=== PATIENT | female | born 1975 | race Caucasian/White ===

== ENCOUNTER → 2017-01-29 | Outpatient (CLI) | payer OTHER ==
[2015-05-26 00:16] VITALS: BP 88/51
[~2017-01-29] MED LIST: ACET325T21 PO; ACET325T9 PO; AMIT150T PO; AMIT50TA PO; CHOL4POW11 PO; CYCL10TA2 PO; DICY10CA53 PO; DIPH25CA58 PO; DRAMAMINE PO; DULO60CA6 PO; GABA-586 PO; HYDR-971 PO; HYDR25SU18 RC; NAPR550T3 PO; NAPROXEN PO; OMEP20TA63 PO; OXYC-323 PO; PROP5POW MC; PROP80CA3 PO; RIZA5TAB PO; TRAM50TA PO
--- NOTE | 2017-01-29 11:42 | KCIC ---
EXAM: Right foot, 2 views. HISTORY: Heel pain. COMPARISON: None. FINDINGS: Frontal and lateral views of the right foot are obtained. There is no fracture, dislocation or subluxation. IMPRESSION: No acute osseous finding. Electronically signed by: Kiley Smith MD (01/29/2017 11:39 AM)
== END | disposition home or self-care (01) ==
LOC: KCIC 10:53
PROVIDERS: ATTEND Nurse Practitioner Family
DX: M79.671 Pain in right foot (principal)
CPT/HCPCS: 73620

== ENCOUNTER → 2017-06-24 | Outpatient (CLI) | payer OTHER ==
[2015-05-26 00:16] VITALS: BP 88/51
[~2017-06-24] MED LIST changes: +CONTRAST GIVEN MC PRN; +IOHEXOL 300 MG/ML 75 ML VIAL IV ONE; +NAPR-677 PO; -NAPR550T3 PO
--- NOTE | 2017-06-24 17:43 | RAD ---
CTA of the abdomen with contrast, 06/24/2017: History: Abdominal pain, possible ischemia Multidetector CT imaging was performed following an IV bolus injection of iodinated contrast material. Multiplanar reconstructions were produced including MIP images as well as 3-D volume rendered reconstructions of the major arteries. No significant atherosclerotic plaquing is identified. The abdominal aorta is of normal caliber. The superior mesenteric, celiac and renal artery origins are all widely patent. A patent inferior mesenteric artery is present. The aortic bifurcation and common iliac arteries are unremarkable. Incidental CT findings include changes of a previous cholecystectomy. There is minimal bilateral renal cortical scarring. IMPRESSION: No significant abnormality is detected. PQRS Compliance Statement: One or more of the following individualized dose reduction techniques were utilized for this examination: 1. Automated exposure control 2. Adjustment of the mA and/or kV according to patient size 3. Use of iterative reconstruction technique
== END | disposition home or self-care (01) ==
LOC: CT 08:58
PROVIDERS: ATTEND Internal Medicine Gastroenterology
DX: R10.9 Unspecified abdominal pain (principal); R19.7 Diarrhea, unspecified; Z90.49 Acquired absence of other specified parts of digestive tract; Z87.891 Personal history of nicotine dependence
CPT/HCPCS: 74175

== ENCOUNTER → 2017-11-12 | Outpatient (CLI) | payer OTHER | END | disposition home or self-care (01) | LOC: KCIC MRI 10:32 | DX: G43.919 Migraine, unspecified, intractable, without status migrainosus (principal); R42 Dizziness and giddiness | CPT/HCPCS: 70551 ==

== ENCOUNTER → 2018-02-10 | Outpatient (CLI) | payer OTHER | END | disposition home or self-care (01) | LOC: MAMMO 12:44 | DX: R92.8 Other abnormal and inconclusive findings on diagnostic imaging of breast (principal) | CPT/HCPCS: 76641; 77066; G0279 ==

== ENCOUNTER → 2018-09-11 | Outpatient (CLI) | payer OTHER ==
[2015-05-26 00:16] VITALS: BP 88/51
[~2018-09-11] MED LIST changes: -CONTRAST GIVEN MC PRN; -GABA-586 PO; +GABA300C18 PO; +HYDR-3164 PO; -HYDR-971 PO; -IOHEXOL 300 MG/ML 75 ML VIAL IV ONE; -OXYC-323 PO; +OXYC1TAB15 PO
--- NOTE | 2018-09-11 14:17 | RAD ---
Right breast ultrasound, 09/11/2018: History: Follow-up breast nodule A targeted ultrasound exam of the right breast was performed at 8:00 location where a nodule was identified on the 02/10/2018 study. Again noted is a smooth oval-shaped hypoechoic nodule with posterior acoustic enhancement. It currently measures 5 x 3 x 4 mm compared to measurements of 6 x 3 x 4 mm on the previous study. No definite internal color flow is seen. Allowing for technical differences it appears to be unchanged in size. This is probably a small fibroadenoma or complicated cyst. Incidental note is made of a 6 mm cyst at the 11:00 location approximately 2.5 cm in the nipple. A 3.5 mm hypoechoic nodule is also noted on today's study at the 10:00 location approximately 7 cm in the nipple. There are low level internal echoes. This lies in an area of reported pain. This is probably a complicated cyst. IMPRESSION: Probably benign right breast nodules as described above. Further sonographic surveillance in 6 months is suggested. BI-RADS 3-probably benign findings
== END | disposition home or self-care (01) ==
LOC: US 13:21
PROVIDERS: ATTEND Obstetrics & Gynecology
DX: R92.8 Other abnormal and inconclusive findings on diagnostic imaging of breast (principal)
CPT/HCPCS: 76641

== ENCOUNTER 2019-02-25 12:38 | Emergency (ER) | payer OTHER ==
[~2019-02-25] VITALS: Ht 175.3 cm; Wt 59.4 kg
--- NOTE | 2019-02-25 13:28 | PHYS DOC ---
Past Medical History Past Medical History: Fibromyalgia, Migraines, Other Additional Past Medical Histor: CHRONIC BACK PAIN, CHRONIC STOMACH ISSUES,ABD PAIN Past Surgical History: Appendectomy, Cholecystectomy, Hysterectomy, Other Additional Past Surgical Histo: KNEE, CARPAL TUNNEL Alcohol Use: None Drug Use: None Adult General Chief Complaint Chief Complaint: ABDOMINAL PAIN HPI HPI Patient is a 43 year old female presents with abdominal pain that started on Saturday. The patient describes abdominal pain as a vibrating her stomach that then turns into sharp and crampy. The patient rates her pain as 8 out of 10. The patient denies any fevers denies nausea denies vomiting. Has a history of irritable bowel syndrome. Review of Systems Review of Systems Constitutional: Denies fever or chills [] Eyes: Denies change in visual acuity, redness, or eye pain [] HENT: Denies nasal congestion or sore throat [] Respiratory: Denies cough or shortness of breath [] Cardiovascular: No additional information not addressed in HPI [] GI: Reports abdominal pain Denies nausea, vomiting, bloody stools or diarrhea [] : Denies dysuria or hematuria [] Musculoskeletal: Denies back pain or joint pain [] Integument: Denies rash or skin lesions [] Neurologic: Denies headache, focal weakness or sensory changes [] Endocrine: Denies polyuria or polydipsia [] Complete systems were reviewed and found to be within normal limits, except as documented in this note. Current Medications Current Medications Current Medications Medications (Trade) Dose Ordered Sig/Serina Start Time Stop Time Status Last Admin Dose Admin Ceftriaxone Sodium (Rocephin) 1 gm 1X ONCE 02/25/19 15:00 02/25/19 15:01 DC Info (CONTRAST GIVEN -- Rx MONITORING) 1 each PRN DAILY PRN 02/25/19 13:45 02/27/19 13:44 Iohexol (Omnipaque 300 Mg/ml) 75 ml 1X ONCE 02/25/19 13:45 02/25/19 13:46 DC 02/25/19 13:45 75 ML Morphine Sulfate (Morphine Sulfate) 4 mg 1X ONCE 02/25/19 13:30 02/25/19 13:31 DC 02/25/19 14:08 4 MG Ondansetron HCl (Zofran) 4 mg 1X ONCE 02/25/19 13:30 02/25/19 13:31 DC 02/25/19 14:06 4 MG Sodium Chloride 1,000 ml @ 1,000 mls/hr 1X ONCE 02/25/19 13:30 02/25/19 14:43 DC 02/25/19 14:02 1,000 MLS/HR Allergies Allergies Allergies Coded Allergies Type Severity Reaction Last Updated Verified metoclopramide Allergy Severe 05/25/15 Yes codeine Adverse Reaction Intermediate Nausea and Vomiting 01/14/15 No Physical Exam Physical Exam Constitutional: Well developed, well nourished, no acute distress, non-toxic appearance. [] HENT: Normocephalic, atraumatic, bilateral external ears normal, oropharynx moist, no oral exudates, nose normal. [] Eyes: PERRLA, EOMI, conjunctiva normal, no discharge. [] Neck: Normal range of motion, no tenderness, supple, no stridor. [] Cardiovascular:Heart rate regular rhythm, no murmur [] Lungs & Thorax: Bilateral breath sounds clear to auscultation [] Abdomen: Bowel sounds normal, soft, tenderness to the left lower quadrant, per iumbilical, epigastric, and left upper quadrant, no masses, no pulsatile masses. [] Skin: Warm, dry, no erythema, no rash. [] Back: No tenderness, no CVA tenderness. [] Extremities: No tenderness, no cyanosis, no clubbing, ROM intact, no edema. [] Neurologic: Alert and oriented X 3, normal motor function, normal sensory function, no focal deficits noted. [] Psychologic: Affect normal, judgement normal, mood normal. [] Current Patient Data Vital Signs Vital Signs Date Time Temp Pulse Resp B/P (MAP) Pulse Ox O2 Delivery O2 Flow Rate FiO2 02/25/19 14:08 20 100 02/25/19 12:51 97.6 78 110/70 (83) Room Air 97.6 Lab Values Laboratory Tests Test 02/25/19 12:50 02/25/19 13:56 Urine Collection Type Unknown Urine Color Yellow Urine Clarity Clear Urine pH 5.0 Urine Specific [place] 1.015 Urine Protein Negative mg/dL (NEG-TRACE) Urine Glucose (UA) Negative mg/dL (NEG) Urine Ketones (Stick) Negative mg/dL (NEG) Urine Blood Moderate (NEG) Urine Nitrite Negative (NEG) Urine Bilirubin Negative (NEG) Urine Urobilinogen Dipstick 0.2 mg/dL (0.2 mg/dL) Urine Leukocyte Esterase Trace (NEG) Urine RBC Occ /HPF (0-2) Urine WBC 1-4 /HPF (0-4) Urine Squamous Epithelial Cells Occ /LPF Urine Bacteria Few /HPF (0-FEW) White Blood Count 6.1 x10^3/uL (4.0-11.0) Red Blood Count 4.12 x10^6/uL (3.50-5.40) Hemoglobin 13.0 g/dL (12.0-15.5) Hematocrit 38.6 % (36.0-47.0) Mean Corpuscular Volume 94 fL (79-100) Mean Corpuscular Hemoglobin 32 pg (25-35) Mean Corpuscular Hemoglobin Concent 34 g/dL (31-37) Red Cell Distribution Width 13.1 % (11.5-14.5) Platelet Count 250 x10^3/uL (140-400) Neutrophils (%) (Auto) 62 % (31-73) Lymphocytes (%) (Auto) 28 % (24-48) Monocytes (%) (Auto) 8 % (0-9) Eosinophils (%) (Auto) 1 % (0-3) Basophils (%) (Auto) 1 % (0-3) Neutrophils # (Auto) 3.8 x10^3uL (1.8-7.7) Lymphocytes # (Auto) 1.7 x10^3/uL (1.0-4.8) Monocytes # (Auto) 0.5 x10^3/uL (0.0-1.1) Eosinophils # (Auto) 0.0 x10^3/uL (0.0-0.7) Basophils # (Auto) 0.0 x10^3/uL (0.0-0.2) Sodium Level 140 mmol/L (136-145) Potassium Level 3.8 mmol/L (3.5-5.1) Chloride Level 104 mmol/L (98-107) Carbon Dioxide Level 28 mmol/L (21-32) Anion Gap 8 (6-14) Blood Urea Nitrogen 9 mg/dL (7-20) Creatinine 0.8 mg/dL (0.6-1.0) Estimated GFR (Cockcroft-Gault) 78.3 BUN/Creatinine Ratio 11 (6-20) Glucose Level 80 mg/dL (70-99) Calcium Level 9.1 mg/dL (8.5-10.1) Total Bilirubin 0.3 mg/dL (0.2-1.0) Aspartate Amino Transferase (AST) 17 U/L (15-37) Alanine Aminotransferase (ALT) 21 U/L (14-59) Alkaline Phosphatase 60 U/L (46-116) Total Protein 8.0 g/dL (6.4-8.2) Albumin 3.7 g/dL (3.4-5.0) Albumin/Globulin Ratio 0.9 (1.0-1.7) L Lipase 141 U/L (73-393) Laboratory Tests 02/25/19 13:56 Laboratory Tests 02/25/19 13:56 EKG EKG [] Radiology/Procedures Radiology/Procedures [][facility] [address] [place] [address] IMAGING REPORT Signed PATIENT: ALEX GARCIA ACCOUNT: [id number] : 1975 LOCATION: ER AGE: 43 SEX: F EXAM STATUS: REG ER ORD. PHYSICIAN: TEDDY DOMINGUEZ APRN REASON: abd pain PROCEDURE: CT ABD PELV W/ IV CONTRST ONLY Examination: CT of the abdomen pelvis with IV contrast HISTORY: History of abdominal pain COMPARISON: None available Technique: Multiplanar, multisequence MR imaging of the abdomen were performed to contrast. FINDINGS: The bibasilar lungs are clear. No evidence of free air identified in the abdomen. The visualized liver grossly appears unremarkable. Cholecystectomy changes identified. The visualized spleen, adrenals grossly appears unremarkable. The stomach is mildly distended. The visualized pancreas grossly appears unremarkable. Few fluid distended small bowel loops identified in the abdomen. There is mild thickened appearance of the wall of the distal descending colon and sigmoid colon with mild surrounding fat stranding. Urinary bladder is mildly distended. The bilateral kidneys enhance symmetrically. The caliber of the aorta grossly appears unremarkable. The appendix is not identified. No evidence of lytic bony destructive lesion. IMPRESSION: 1. Mild thickened appearance of the wall of the distal descending colon and the sigmoid colon with minimal surrounding positioning likely mild colitis. 2. Cholecystectomy changes. 3. Few fluid distended small bowel loops identified in the lower mid abdomen, nonspecific could be mild enteritis. Electronically signed by: Huber Hickman MD (02/25/2019 3:41 PM) [facility]-KCIC2 Course & Med Decision Making Course & Med Decision Making Pertinent Labs and Imaging studies reviewed. (See chart for details) Will get labs, CT, ua, and supportive care. Has a UTI. Will d/c home, other labs are unremarkable. Dragon Disclaimer Dragon Disclaimer This electronic medical record was generated, in whole or in part, using a voice recognition dictation system. Departure Departure Impression: Primary Impression: UTI (urinary tract infection) Disposition: HOME, SELF-CARE Condition: STABLE Referrals: CARLOS NGUYEN APRN (PCP) Patient Instructions: Urinary Tract Infection Additional Instructions: Thank you for visiting [facility]. We appreciate you trusting us with your care. If any additional problems come up don't hesitate to return to visit us. Please follow up with your primary care provider so they can plan additional care if needed and know about the problem that you had. If symptoms worsen come back to the Emergency Department. Any concerning symptoms that start such as chest pain, shortness of Air, weakness or numbness on one side of the body, running high fevers or any other concerning symptoms return to the ER. You have been prescribed an antibiotic today to help fight your infection. Please take all of the antibiotic as directed. If after 48 hours the infection is not improving, please return for more care. If the infection worsens, return to ER for additional care. Please fill your medications at any pharmacy and follow the prescription instructions. Scripts Cephalexin (KEFLEX) 500 Mg Capsule 1 CAP PO BID for 7 Days, #14 CAP Prov: TEDDY DOMINGUEZ APRN 02/25/19 Problem Qualifiers Primary Impression: UTI (urinary tract infection) Urinary tract infection type: acute cystitis Hematuria presence: without hematuria Qualified Codes: N30.00 - Acute cystitis without hematuria TEDDY DOMINGUEZ APRN Feb 25, 2019 13:28
[2019-02-25] MEDS ORDERED: IV NORMAL SALINE 1000ML BAG 1,000 ML IV ONE (13:30)
[2019-02-25] MEDS ORDERED: MORPHINE SULFATE 4 MG/ML VIAL. IV ONE (13:30)
[2019-02-25] MEDS ORDERED: ONDANSETRON PF 4 MG/2 ML VIAL. IV ONE (13:30)
[2019-02-25] MEDS ORDERED: CONTRAST GIVEN. MC PRN (13:45)
[2019-02-25] MEDS ORDERED: IOHEXOL 300 MG/ML 100ML VIAL. IV ONE (13:45)
[2019-02-25 13:53] LABS: BILIRUBIN,URINE NEGATIVE (NEG); CLARITY,URINE CLEAR; COLOR,URINE YELLOW; NITRITE,URINE NEGATIVE (NEG); PROTEIN,URINE NEGATIVE (NEG-TRACE); UROBILINOGEN,URINE 0.2 mg/dL (0.2 mg/dL)
[2019-02-25 14:09] LABS: BACTERIA,URINE FEW /HPF (0-FEW); RBC,URINE OCC /HPF (0-2); SQUAMOUS EPITHELIAL CELL,UR OCC /LPF
[2019-02-25 14:18] LABS: BASO % 1 % (0-3); EOS % 1 % (0-3); HEMATOCRIT 38.6 % (36.0-47.0); LYMPH # 1.7 x10^3/uL (1.0-4.8); LYMPH % 28 % (24-48); MEAN CORPUSCULAR HEMOGLOBIN 32 pg (25-35); MEAN CORPUSCULAR HGB CONC 34 g/dL (31-37); MEAN CORPUSCULAR VOLUME 94 fL (79-100); MONO # 0.5 x10^3/uL (0.0-1.1); MONO % 8 % (0-9); NEUT # 3.8 x10^3uL (1.8-7.7); NEUT % 62 % (31-73); PLATELET COUNT 250 x10^3/uL (140-400); RED BLOOD COUNT 4.12 x10^6/uL (3.50-5.40); RED CELL DISTRIBUTION WIDTH 13.1 % (11.5-14.5); WHITE BLOOD COUNT 6.1 x10^3/uL (4.0-11.0)
[2019-02-25 14:34] LABS: CALCIUM 9.1 mg/dL (8.5-10.1); CREATININE 0.8 mg/dL (0.6-1.0); GFR 78.3; POTASSIUM 3.8 mmol/L (3.5-5.1)
[2019-02-25 14:47] LABS: ALBUMIN 3.7 g/dL (3.4-5.0); ALBUMIN/GLOBULIN RATIO 0.9 (1.0-1.7); TOTAL BILIRUBIN 0.3 mg/dL (0.2-1.0)
[2019-02-25] MEDS ORDERED: cefTRIAXone IV Push 1 GM VIAL. IVP ONE (15:00)
--- NOTE | 2019-02-25 15:43 | RAD ---
Examination: CT of the abdomen pelvis with IV contrast HISTORY: History of abdominal pain COMPARISON: None available Technique: Multiplanar, multisequence MR imaging of the abdomen were performed to contrast. FINDINGS: The bibasilar lungs are clear. No evidence of free air identified in the abdomen. The visualized liver grossly appears unremarkable. Cholecystectomy changes identified. The visualized spleen, adrenals grossly appears unremarkable. The stomach is mildly distended. The visualized pancreas grossly appears unremarkable. Few fluid distended small bowel loops identified in the abdomen. There is mild thickened appearance of the wall of the distal descending colon and sigmoid colon with mild surrounding fat stranding. Urinary bladder is mildly distended. The bilateral kidneys enhance symmetrically. The caliber of the aorta grossly appears unremarkable. The appendix is not identified. No evidence of lytic bony destructive lesion. IMPRESSION: 1. Mild thickened appearance of the wall of the distal descending colon and the sigmoid colon with minimal surrounding positioning likely mild colitis. 2. Cholecystectomy changes. 3. Few fluid distended small bowel loops identified in the lower mid abdomen, nonspecific could be mild enteritis. Electronically signed by: Huber Hickman MD (02/25/2019 3:41 PM) [facility]2
[2019-02-25] MEDS ORDERED: CEPH-264 PO (16:03)
[2019-02-25 17:45] VITALS: BP 116/57
== END 2019-02-25 16:30 | disposition home or self-care (01) ==
LOC: ER 12:38
DX: N39.0 Urinary tract infection, site not specified (principal); G89.29 Other chronic pain; G43.909 Migraine, unspecified, not intractable, without status migrainosus; Z90.89 Acquired absence of other organs; Z90.49 Acquired absence of other specified parts of digestive tract; Z90.710 Acquired absence of both cervix and uterus; Z88.5 Allergy status to narcotic agent; Z88.8 Allergy status to other drugs, medicaments and biological substances
CPT/HCPCS: 36415; 74177; 80053; 81001; 83690; 85025; 87086; 96374; 96375; 99285; J0696; J2270; J2405; J7030; Q9967

== ENCOUNTER → 2019-08-25 | Outpatient (CLI) | payer OTHER ==
[~2019-08-25] MED LIST changes: +CEPH-264 PO
--- NOTE | 2019-08-25 14:55 | RAD ---
DATE: 08/25/2019. EXAM: MAMMO D[facility] CHANEL ASHAT, BREAST RIGHT. HISTORY: Palpable focus laterally and superiorly on the right. Six-month follow-up of nodules on prior sonography. Bilateral surveillance. COMPARISON: 02/10/2018. This study was interpreted with the benefit of Computerized Aided Detection (CAD). FINDINGS: Breast Density: DENSE The breast parenchyma is dense, which could reduce the sensitivity of mammography. Breast parenchyma level density D.. A skin marker is placed at the site of palpable concern on the right. There is no clear underlying mammographic abnormality. The parenchymal pattern is stable. Scattered calcifications are benign. There are no suspicious masses, microcalcifications or architectural distortion. Sonography was performed at the site of palpable concern superolaterally on the right and to follow the previous sonographic lesions. At the 8:00 position 4 cm from the nipple, a 5 x 4 mm hypoechoic oval nodule appears more smoothly marginated than previously and is likely a benign fibroadenoma. Another tiny complicated cyst or fibroadenoma at the 10:00 position 5 cm from the nipple also appears stable and benign. A cyst noted elsewhere previously has resolved. There is no suspicious correlate for the palpable focus. Only dense parenchyma is seen. BI-RADS CATEGORY: 3 PROBABLY BENIGN FINDING(S)-SHORT INTERVAL FOLLOW-UP SUGGESTED. RECOMMENDED FOLLOW-UP: 12M 12 MONTH FOLLOW-UP. 1. Sonography of the oval nodule at the right 8:00 position can be performed when the patient returns for her yearly examination to confirm 18 month stability and likely benignity. 2. Recommend ongoing follow-up of palpable findings. PQRS compliance statement: Patient information was entered into a reminder system with a target due date 08/25/2020 for the next mammogram. Mammography is a sensitive method for finding small breast cancers, but it does not detect them all and is not a substitute for careful clinical examination. A negative mammogram does not negate a clinically suspicious finding and should not result in delay in biopsying a clinically suspicious abnormality. "Our facility is accredited by the [employer] Mammography Program."
== END | disposition home or self-care (01) ==
LOC: MAMMO 09:47
PROVIDERS: ATTEND Obstetrics & Gynecology
DX: N63.13 Unspecified lump in the right breast, lower outer quadrant (principal); N64.89 Other specified disorders of breast
CPT/HCPCS: 76641; 77066; G0279; 77062

== ENCOUNTER → 2019-09-17 | Outpatient (CLI) | payer OTHER ==
[~2019-09-17] MED LIST changes: +DICY10CA3 PO; +ONDA4TAB12 PO
--- NOTE | 2019-09-17 13:40 | KCIC ---
EXAM: Abdomen and pelvis CT without intravenous contrast. HISTORY: Hematuria. TECHNIQUE: Computed tomographic images of the abdomen and pelvis were obtained without contrast. Multiplanar reformatting was performed. *One or more of the following individualized dose reduction techniques were utilized for this examination: 1. Automated exposure control. 2. Adjustment of the mA and/or kV according to patient size. 3. Use of iterative reconstruction technique. COMPARISON: 02/25/2019. FINDINGS: Evaluation of the lower thorax demonstrates posterior dependent atelectasis. No suspicious hepatic lesion is seen. The gallbladder is surgically absent. The pancreas, spleen and adrenal glands are unremarkable. There is no evidence of nephrolithiasis. There is no hydronephrosis. No convincing solid or cystic renal lesion is seen on this noncontrast exam. The bladder is nearly empty. There is prominent soft tissue density associated with the vaginal cuff, likely physiologic given the interval stability compared to the prior study. No adnexal mass or cyst is seen. The appendix is surgically absent. No abnormally thickened or dilated loop of bowel is seen. There is a small round fat density structure adjacent to the rectosigmoid junction measuring 9 mm, possibly due to the sequela of epiploic appendagitis or fat ischemia/infarction. The aorta is normal in caliber. There is no lymphadenopathy. There are sclerotic lesions within the right iliac bone and right femoral head which are likely due to bone islands. There is thoracolumbar curvature which may be positional or due to scoliosis. IMPRESSION: 1. No evidence of nephroureterolithiasis or hydronephrosis. 2. 9 mm fat density structure adjacent to the rectosigmoid junction, possibly due to the sequela of epiploic appendagitis or fat ischemia/infarction. Electronically signed by: Kiley Smith MD (09/17/2019 1:37 PM) [place] [id number]
== END | disposition home or self-care (01) ==
LOC: KCIC CT 13:30
PROVIDERS: ATTEND Nurse Practitioner Family
DX: J98.11 Atelectasis (principal); Z90.49 Acquired absence of other specified parts of digestive tract; Z90.89 Acquired absence of other organs
CPT/HCPCS: 74176

== ENCOUNTER → 2019-09-17 | Outpatient (CLI) | payer OTHER ==
[~2019-09-17] MED LIST changes: -DICY10CA3 PO; -ONDA4TAB12 PO
--- NOTE | 2019-09-17 13:34 | KCIC ---
MR of the left ankle HISTORY: Left ankle pain after injury 2 months ago. Pain is medial. TECHNIQUE: Routine multiplanar sequences are obtained. FINDINGS: The peroneal tendons are intact. Anterior talofibular ligament and calcaneofibular ligament are thick and ill-defined, compatible with sprain or scarring. No evidence of acute disruption. Posterior talofibular ligament intact. Tibiofibular syndesmotic ligaments are intact. Posterior tibial and flexor tendons are intact. No acute medial ligamentous tear. Anterior tibial and extensor tendons are intact. Achilles tendon intact. No acute plantar fasciitis. Subtalar joints are patent. Tarsal sinus is intact. Talar dome is intact. Small tibiotalar joint effusion. Small talonavicular and subtalar joint effusions. No evidence of acute fracture or aggressive bone destruction. No acute soft tissue abnormality. There appears to be some heel valgus. IMPRESSION: 1. Sprain/scarring of anterior talofibular and calcaneofibular ligaments. 2. Small joint effusions. Electronically signed by: Eldon Mak MD (09/17/2019 1:31 PM) [facility]-KC[facility]
== END | disposition home or self-care (01) ==
LOC: KCIC MRI 12:03
PROVIDERS: ATTEND Orthopaedic Surgery Sports Medicine
DX: M25.472 Effusion, left ankle (principal)
CPT/HCPCS: 73721

== ENCOUNTER 2019-10-02 15:19 | Emergency (ER) | payer OTHER ==
[~2019-10-02] VITALS: Ht 175.3 cm; Wt 61.3 kg
[2019-10-02 15:55] VITALS: BP 122/61
[2019-10-02] MEDS ORDERED: ONDANSETRON ODT 4 MG TAB.RAPDIS. PO STA (15:56)
[2019-10-02] MEDS ORDERED: DICYCLOMINE HCL 10 MG CAPSULE PO STA (15:56)
[2019-10-02] MEDS ORDERED: DICY10CA3 PO (16:08)
[2019-10-02] MEDS ORDERED: ONDA4TAB12 PO (16:08)
--- NOTE | 2019-10-02 16:09 | PHYS DOC ---
Past Medical History Past Medical History: Fibromyalgia, Migraines, Other Additional Past Medical Histor: CHRONIC BACK PAIN, CHRONIC STOMACH ISSUES,ABD PAIN Past Surgical History: Appendectomy, Cholecystectomy, Hysterectomy, Other Additional Past Surgical Histo: KNEE, CARPAL TUNNEL Alcohol Use: None Drug Use: None Adult General Chief Complaint Chief Complaint: NAUSEA/VOMITING/DIARRHA HPI HPI Patient is a 44 year old female who presents with nausea, vomiting, and diarrhea that has been ongoing since 1 am. The patient ate beef stew around 5:30 PM last night and everyone in her family who ate it got sick. The patient also states she has been having abdominal cramping and rates her pain as 8/10 in severity. Denies additional symptoms. Complete ROS were reviewed and found to be within normal limits, except as documented in the HPI Current Medications Current Medications Current Medications Medications (Trade) Dose Ordered Sig/Serina Start Time Stop Time Status Last Admin Dose Admin Dicyclomine HCl (Bentyl) 10 mg 1X STAT 10/02/19 15:56 10/02/19 15:59 DC Ondansetron HCl (Zofran Odt) 4 mg 1X STAT 10/02/19 15:56 10/02/19 15:59 DC Allergies Allergies Allergies Coded Allergies Type Severity Reaction Last Updated Verified metoclopramide Allergy Severe 05/25/15 Yes codeine Adverse Reaction Intermediate Nausea and Vomiting 01/14/15 No Physical Exam Physical Exam Constitutional: Well developed, well nourished, no acute distress, non-toxic appearance. [] HENT: Normocephalic, atraumatic, bilateral external ears normal, oropharynx moist, no oral exudates, nose normal. [] Eyes: PERRLA, EOMI, conjunctiva normal, no discharge. [] Neck: Normal range of motion, no tenderness, supple, no stridor. [] Cardiovascular:Heart rate regular rhythm, no murmur [] Lungs & Thorax: Bilateral breath sounds clear to auscultation [] Abdomen: Bowel sounds normal, soft, abdominal tenderness diffusely, no masses, no pulsatile masses. [] Skin: Warm, dry, no erythema, no rash. Neurologic: Alert and oriented X 3, normal motor function, normal sensory function, no focal deficits noted. [] Psychologic: Affect normal, judgement normal, mood normal. [] Current Patient Data Vital Signs Vital Signs Date Time Temp Pulse Resp B/P (MAP) Pulse Ox O2 Delivery O2 Flow Rate FiO2 10/02/19 15:55 98.9 104 16 122/61 (81) 96 Room Air 98.9 EKG EKG [] Radiology/Procedures Radiology/Procedures [] Course & Med Decision Making Course & Med Decision Making Pertinent Labs and Imaging studies reviewed. (See chart for details) Will give Jim and Rickey. Appears likely to have food poisoning. Dragon Disclaimer Dragon Disclaimer This electronic medical record was generated, in whole or in part, using a voice recognition dictation system. Departure Departure Impression: Primary Impression: Nausea & vomiting Additional Impression: Diarrhea Disposition: HOME, SELF-CARE Condition: STABLE Referrals: CARLOS NGUYEN APRN (PCP) Patient Instructions: Food Poisoning Additional Instructions: Thank you for visiting [facility]. We appreciate you trusting us with your care. If any additional problems come up don't hesitate to return to visit us. Please follow up with your primary care provider so they can plan additional care if needed and know about the problem that you had. If symptoms worsen come back to the Emergency Department. Any concerning symptoms that start such as chest pain, shortness of air, weakness or numbness on one side of the body, running high fevers or any other concerning symptoms return to the ER. Please fill your medications at any pharmacy and follow the prescription instructions. Scripts Dicyclomine Hcl (DICYCLOMINE HCL) 10 Mg Capsule 1 CAP PO PRN Q6HRS PRN for PAIN, #20 CAP 0 Refills Prov: TEDDY DOMINGUEZ APRN 10/02/19 Ondansetron (ONDANSETRON ODT) 4 Mg Tab.rapdis 4 MG PO Q6HRS PRN for NAUSEA, #20 Prov: TEDDY DOMINGUEZ APRN 10/02/19 Problem Qualifiers Primary Impression: Nausea & vomiting Vomiting type: unspecified Vomiting Intractability: unspecified Qualified Codes: R11.2 - Nausea with vomiting, unspecified Additional Impression: Diarrhea Diarrhea type: unspecified type Qualified Codes: R19.7 - Diarrhea, unspecified TEDDY DOMINGUEZ APRN Oct 02, 2019 16:09
== END 2019-10-02 17:05 | disposition home or self-care (01) ==
LOC: ER 15:19
DX: R11.2 Nausea with vomiting, unspecified (principal); R19.7 Diarrhea, unspecified; R10.84 Generalized abdominal pain; G43.909 Migraine, unspecified, not intractable, without status migrainosus; G89.29 Other chronic pain; Z90.89 Acquired absence of other organs; Z90.49 Acquired absence of other specified parts of digestive tract; Z90.710 Acquired absence of both cervix and uterus; Z88.5 Allergy status to narcotic agent; Z88.8 Allergy status to other drugs, medicaments and biological substances
CPT/HCPCS: 99283; Q0162

== ENCOUNTER 2020-08-12 19:01 | Emergency (ER) | payer OTHER ==
[~2020-08-12] VITALS: Ht 175.3 cm; Wt 65.9 kg
[~2020-08-12 19:01] MED LIST changes: +DICY10CA3 PO; +ONDA4TAB12 PO
[2020-08-12 21:00] LABS: BILIRUBIN,URINE NEGATIVE (NEG); CLARITY,URINE CLEAR; COLOR,URINE YELLOW; NITRITE,URINE NEGATIVE (NEG); PROTEIN,URINE NEGATIVE (NEG-TRACE); UROBILINOGEN,URINE 0.2 mg/dL (0.2 mg/dL)
[2020-08-12 21:02] LABS: BASO % 0 % (0-3); EOS % 0 % (0-3); HEMATOCRIT 39.5 % (36.0-47.0); HEMOGLOBIN 13.6 g/dL (12.0-15.5); LYMPH # 1.7 x10^3/uL (1.0-4.8); LYMPH % 14 % (24-48); MEAN CORPUSCULAR HEMOGLOBIN 31 pg (25-35); MEAN CORPUSCULAR HGB CONC 34 g/dL (31-37); MEAN CORPUSCULAR VOLUME 90 fL (79-100); MONO # 0.7 x10^3/uL (0.0-1.1); MONO % 6 % (0-9); NEUT # 9.8 x10^3/uL (1.8-7.7); NEUT % 80 % (31-73); PLATELET COUNT 342 x10^3/uL (140-400); RED BLOOD COUNT 4.37 x10^6/uL (3.50-5.40); RED CELL DISTRIBUTION WIDTH 12.3 % (11.5-14.5); WHITE BLOOD COUNT 12.3 x10^3/uL (4.0-11.0)
[2020-08-12 21:08] LABS: BACTERIA,URINE FEW /HPF (0-FEW); WBC,URINE 0 /HPF (0-4)
[2020-08-12 21:10] LABS: CALCIUM 9.2 mg/dL (8.5-10.1); GFR 60.2; POTASSIUM 3.2 mmol/L (3.5-5.1)
[2020-08-12 21:12] LABS: PREG TEST PT QUAL NEGATIVE (NEG)
[2020-08-12 21:16] LABS: ALBUMIN 3.7 g/dL (3.4-5.0); ALBUMIN/GLOBULIN RATIO 0.8 (1.0-1.7); TOTAL BILIRUBIN 0.4 mg/dL (0.2-1.0); TOTAL PROTEIN 8.4 g/dL (6.4-8.2)
[2020-08-12] MEDS ORDERED: ONDANSETRON PF 4 MG/2 ML VIAL. IVP ONE (21:30)
[2020-08-12] MEDS ORDERED: IV NORMAL SALINE 1000ML BAG 1,000 ML IV ONE (22:15)
[2020-08-12 23:30] VITALS: BP 100/55
--- NOTE | 2020-08-13 00:01 | RAD ---
CT abdomen and pelvis with contrast: Reason for examination: Abdominal pain and vomiting with elevated liver function tests. Comparison is made to previous studies dated 09/17/2019 and 02/25/2019. Helical images were obtained through the abdomen pelvis with intravenous administration of 75 cc Omni paque 300 and oral administration of 50 cc Omnipaque 240. Reconstruction was performed in sagittal an d coronal planes. Exposure: One or more of the following individualized dose reduction techniques were utilized for thi s examination: 1. Automated exposure control 2. Adjustment of the mA and/or kV according to patient size 3. Use of iterative reconstruction technique. The lung bases are clear. The heart size is normal with no pericardial effusion. The liver shows a small hypodense lesion anteriorly in the left lobe consistent with a probable cyst or hemangioma measuring 5.6 mm in size which is unchanged. No abnormality seen at the spleen, adrenal glands or pancreas. Gallbladder surgically absent. The abdominal aorta and inferior vena cava show n o acute abnormalities. The stomach shows no wall thickening or obstruction. No abnormality seen at th e duodenum. The small intestinal tract shows some dilatation at 2.8 cm without wall thickening proxim ally. The distal small intestinal tract however is not distended and shows normal wall thickening. Th e appendix is surgically absent. Colon however shows thickening of the wall in the ascending colon an d in the transverse colon from the hepatic to the splenic flexure. There is also some thickening of t he wall of the mid sigmoid colon. This may represent colitis. There is no diverticulosis or diverticu litis. The kidneys show no renal masses, renal calculi, hydronephrosis or obstructive uropathy. No abnormality seen at the bladder or vaginal cuff. There is a small amount of free fluid in the pelv is. No free air is seen. There is a sclerotic lesion 1 cm sclerotic lesion in the right iliac bone ad jacent to the SI joint consistent with a bone island. No acute bony abnormalities are seen. IMPRESSION: Small hypodense lesion 5.6 mm in size in the left lobe of liver probably representing a small cyst or hemangioma and is unchanged. Dilated proximal small intestine at 2.8 cm without wall thickening with the distal small intestine sh owing no dilatation or wall thickening or obstruction. Wall thickening in the mid ascending colon and in the transverse colon from the hepatic to the spleni c flexure and at the mid sigmoid colon. This may reflect colitis. Small amount of free fluid in the pelvis. Electronically signed by: Gwendolyn Hyman MD (08/12/2020 11:58 PM) [facility]
[2020-08-13] MEDS ORDERED: METHYLNALTREXONE 12 MG/0.6 ML VIAL. SQ ONE (00:15)
[2020-08-13] MEDS ORDERED: AMOX1TAB61 PO (00:19)
--- NOTE | 2020-08-13 00:19 | ED.ADGEN ---
Past Medical History Past Medical History: Endometriosis, Fibromyalgia, Migraines, Other Additional Past Medical Histor: CHRONIC BACK PAIN, CHRONIC STOMACH ISSUES,ABD PAIN Past Surgical History: Appendectomy, Cholecystectomy, Hysterectomy, Other Additional Past Surgical Histo: KNEE, CARPAL TUNNEL, BILATERAL LE POSTERIOR TENDONS REPLACED Smoking Status: Former Smoker Alcohol Use: None Drug Use: None General Adult EDM: Chief Complaint: NAUSEA/VOMITING/DIARRHA HPI: HPI: Patient is a 44-year-old female who presents to the emergency room complaining of nausea and vomiting. Patient had surgery last week and has been taking oxycodone. She initially was given nauseous with the oxycodone. She started taking Zofran with it which greatly improved her symptoms. She started having nausea and vomiting earlier this evening. She has been having constipation since her surgery. She has tried Colace at home without any relief in her symptoms. She denies any known fevers. Review of Systems: Review of Systems: Complete ROS is negative unless otherwise documented in HPI Current Medications: Current Medications Medications (Trade) Dose Ordered Sig/Serina Start Time Stop Time Status Last Admin Dose Admin Info (CONTRAST GIVEN -- Rx MONITORING) 1 each PRN DAILY PRN 08/13/20 01:15 08/15/20 01:14 Iohexol (Omnipaque 240 Mg/ml) 50 ml 1X ONCE 08/13/20 01:15 08/13/20 01:16 DC 08/13/20 01:09 50 ML Iohexol (Omnipaque 300 Mg/ml) 75 ml 1X ONCE 08/13/20 01:15 08/13/20 01:16 DC 08/13/20 01:09 75 ML Magnesium Citrate (Citroma) 296 ml 1X ONCE 08/13/20 00:30 08/13/20 00:37 DC 08/13/20 00:36 296 ML Methylnaltrexone [place] (Relistor) 12 mg 1X ONCE 08/13/20 00:15 08/13/20 00:16 DC 08/13/20 00:36 12 MG Ondansetron HCl (Zofran) 4 mg 1X ONCE 08/12/20 21:30 08/12/20 21:31 DC 08/12/20 21:56 4 MG Sodium Chloride 1,000 ml @ 1,000 mls/hr 1X ONCE 08/12/20 22:15 08/12/20 23:14 DC 08/12/20 22:11 1,000 MLS/HR Allergies: Allergies: Allergies Coded Allergies Type Severity Reaction Last Updated Verified metoclopramide Allergy Severe 05/25/15 Yes codeine Adverse Reaction Intermediate Nausea and Vomiting 01/14/15 No Physical Exam: PE: General: Awake, alert, NAD. Well Nourished, well hydrated. Cooperative HEENT: Atraumatic, EOMI, PERRL, airway patent, moist oral mucosa Neck: Supple, trachea midline Respiratory: CTA bilaterally, normal effort, no wheezing/crackles CV: RRR, no murmur, cap refill <2 GI: Soft, nondistended, nontender, no masses MSK: No obvious deformities Skin: Warm, dry, intact Neuro: A&O x3, speech NL, sensory and motor grossly intact, no focal deficits Psych: Normal affect, normal mood, not suicidal or homicidal Current Patient Data: Labs: Laboratory Tests Test 08/12/20 20:27 08/12/20 20:45 White Blood Count 12.3 x10^3/uL (4.0-11.0) H Red Blood Count 4.37 x10^6/uL (3.50-5.40) Hemoglobin 13.6 g/dL (12.0-15.5) Hematocrit 39.5 % (36.0-47.0) Mean Corpuscular Volume 90 fL (79-100) Mean Corpuscular Hemoglobin 31 pg (25-35) Mean Corpuscular Hemoglobin Concent 34 g/dL (31-37) Red Cell Distribution Width 12.3 % (11.5-14.5) Platelet Count 342 x10^3/uL (140-400) Neutrophils (%) (Auto) 80 % (31-73) H Lymphocytes (%) (Auto) 14 % (24-48) L Monocytes (%) (Auto) 6 % (0-9) Eosinophils (%) (Auto) 0 % (0-3) Basophils (%) (Auto) 0 % (0-3) Neutrophils # (Auto) 9.8 x10^3/uL (1.8-7.7) H Lymphocytes # (Auto) 1.7 x10^3/uL (1.0-4.8) Monocytes # (Auto) 0.7 x10^3/uL (0.0-1.1) Eosinophils # (Auto) 0.0 x10^3/uL (0.0-0.7) Basophils # (Auto) 0.0 x10^3/uL (0.0-0.2) Urine Collection Type Unknown Urine Color Yellow Urine Clarity Clear Urine pH 6.0 (<5.0-8.0) Urine Specific Hopkins 1.010 (1.000-1.030) Urine Protein Negative mg/dL (NEG-TRACE) Urine Glucose (UA) Negative mg/dL (NEG) Urine Ketones (Stick) Negative mg/dL (NEG) Urine Blood Moderate (NEG) Urine Nitrite Negative (NEG) Urine Bilirubin Negative (NEG) Urine Urobilinogen Dipstick 0.2 mg/dL (0.2 mg/dL) Urine Leukocyte Esterase Negative (NEG) Urine RBC 3-5 /HPF (0-2) Urine WBC 0 /HPF (0-4) Urine Squamous Epithelial Cells Few /LPF Urine Bacteria Few /HPF (0-FEW) Sodium Level 136 mmol/L (136-145) Potassium Level 3.2 mmol/L (3.5-5.1) L Chloride Level 101 mmol/L (98-107) Carbon Dioxide Level 28 mmol/L (21-32) Anion Gap 7 (6-14) Blood Urea Nitrogen 14 mg/dL (7-20) Creatinine 1.0 mg/dL (0.6-1.0) Estimated GFR (Cockcroft-Gault) 60.2 BUN/Creatinine Ratio 14 (6-20) Glucose Level 112 mg/dL (70-99) H Calcium Level 9.2 mg/dL (8.5-10.1) Total Bilirubin 0.4 mg/dL (0.2-1.0) Aspartate Amino Transferase (AST) 45 U/L (15-37) H Alanine Aminotransferase (ALT) 100 U/L (14-59) H Alkaline Phosphatase 168 U/L (46-116) H Total Protein 8.4 g/dL (6.4-8.2) H Albumin 3.7 g/dL (3.4-5.0) Albumin/Globulin Ratio 0.8 (1.0-1.7) L Serum Test, Qualitative Negative (NEG) POC Urine HCG, Qualitative Hcg negative (Negative) Laboratory Tests 08/12/20 20:27 Laboratory Tests 08/12/20 20:27 Vital Signs: Vital Signs Date Time Temp Pulse Resp B/P (MAP) Pulse Ox O2 Delivery O2 Flow Rate FiO2 08/13/20 00:30 84 97 Room Air 08/12/20 23:30 100/55 (70) 08/12/20 19:37 98.4 16 98.4 EKG: EKG: [] Heart Score: Risk Factors: Risk Factors: DM, Current or recent (<one month) smoker, HTN, HLP, family history of CAD, obesity. Risk Scores: Score 0 - 3: 2.5% MACE over next 6 weeks - Discharge Home Score 4 - 6: 20.3% MACE over next 6 weeks - Admit for Clinical Observation Score 7 - 10: 72.7% MACE over next 6 weeks - Early Invasive Strategies Radiology/Procedures: Radiology/Procedures: [] Course & Med Decision Making: Course & Med Decision Making Pertinent Labs and Imaging studies reviewed. (See chart for details) Abdominal work-up was ordered including a CBC, CMP, lipase, UA. Patient does have elevated liver enzymes. CT was done and shows colitis. Patient will be started on Augmentin. On my evaluation patient does appear to be constipated on her CT scan. She received a dose of Relistor here in the emergency room. She will be given magnesium citrate for home. Patient's test results and vitals while in the ED were fully reviewed and discussed with the patient. Patient is stable and at this time does not need admission to the hospital. We have discussed strict return precautions and the importance of following up with their Primary Care Physician. Patient stated understanding and was given an opportunity to ask any questions. Patient is in agreement with plan. Dragon Disclaimer: William Disclaimer: This electronic medical record was generated, in whole or in part, using a voice recognition dictation system. Departure Departure Impression: Primary Impression: Colitis Additional Impression: Constipation Disposition: 01 DC HOME SELF CARE/HOMELESS Condition: IMPROVED Referrals: CARLOS NGUYEN APRN (PCP) Patient Instructions: Colitis Scripts Amoxicillin/Potassium Clav (AUGMENTIN 875-125 TABLET) 1 Each Tablet 1 TAB PO Q12HR for 5 Days, #10 TAB Prov: JAVI CHASE MD 08/13/20 Problem Qualifiers JAVI CHASE MD Aug 13, 2020 00:19
[2020-08-13] MEDS ORDERED: MAGNESIUM CITRATE 296 ML SOLUTION. PO ONE (00:30)
[2020-08-13] MEDS ORDERED: CONTRAST GIVEN. MC PRN (01:15)
[2020-08-13] MEDS ORDERED: IOHEXOL 300 MG/ML 100ML VIAL. IV ONE (01:15)
[2020-08-13] MEDS ORDERED: IOHEXOL 240 MG/ML 50ML VIAL. PO ONE (01:15)
== END 2020-08-13 00:40 | disposition home or self-care (01) ==
LOC: ER 19:01
DX: K52.9 Noninfective gastroenteritis and colitis, unspecified (principal); K59.00 Constipation, unspecified; R11.2 Nausea with vomiting, unspecified; M79.7 Fibromyalgia; G43.909 Migraine, unspecified, not intractable, without status migrainosus; G89.29 Other chronic pain; Z90.89 Acquired absence of other organs; Z90.710 Acquired absence of both cervix and uterus; Z90.49 Acquired absence of other specified parts of digestive tract; Z98.890 Other specified postprocedural states; Z88.8 Allergy status to other drugs, medicaments and biological substances
CPT/HCPCS: 36415; 74177; 80053; 81001; 81025; 84703; 85025; 96361; 96372; 96374; 99285; J2212; J2405; J7030; Q9966; Q9967

== ENCOUNTER → 2020-11-03 | Outpatient (CLI) | payer OTHER ==
[~2020-11-03] MED LIST changes: +AMOX1TAB61 PO
== END ==
LOC: LAB 10:31
PROVIDERS: ATTEND Psychiatry & Neurology Neurology with Special Qualifications in Child Neurology
DX: G62.9 Polyneuropathy, unspecified (principal); R20.0 Anesthesia of skin; R53.1 Weakness
CPT/HCPCS: 82607; 84165; 84443; 86038

== ENCOUNTER → 2020-12-15 | Outpatient (CLI) | payer OTHER ==
--- NOTE | 2020-12-15 16:26 | RAD ---
DATE: 12/15/2020 EXAM: MAMMO [facility], BREAST RIGHT HISTORY: Follow-up of probably benign mass in the right breast. COMPARISON: 09/29/2019, 08/25/2019, 09/11/2018, 02/11/2020 This study was interpreted with the benefit of Computerized Aided Detection (CAD). Breast Density: DENSE The breast parenchyma is dense, which could reduce the sensitivity of mammography. Breast parenchyma level density D. FINDINGS: MAMMOGRAM: There is a biopsy clip in the upper outer right breast. No suspicious mass, calcification, or architectural distortion. ULTRASOUND: The circumscribed ovoid hypoechoic mass at 8:00 4 cm from the nipple measuring 5 x 4 x 4 mm is unchanged. This is parallel in orientation with posterior acoustic enhancement and no vascularity. The hypoechoic mass at 9 36 cm from the nipple measuring 4 x 3 x 2 mm is unchanged. This is also parallel in orientation with posterior acoustic enhancement and no vascularity. These have been stable for over 2 years. No axillary lymphadenopathy. IMPRESSION: No evidence of malignancy. Unchanged benign masses in the outer right breast. BI-RADS CATEGORY: 2 BENIGN FINDING(S) RECOMMENDED FOLLOW-UP: 12M 12 MONTH FOLLOW-UP PQRS compliance statement: Patient information was entered into a reminder system with a target due date for the next mammogram. Mammography is a sensitive method for finding small breast cancers, but it does not detect them all and is not a substitute for careful clinical examination. A negative mammogram does not negate a clinically suspicious finding and should not result in delay in biopsying a clinically suspicious abnormality. "Our facility is accredited by the [employer] Mammography Program."
== END ==
LOC: MAMMO 15:00
PROVIDERS: ATTEND Surgery
DX: N63.11 Unspecified lump in the right breast, upper outer quadrant (principal)
CPT/HCPCS: 76641; 77066; G0279; 77062

== ENCOUNTER → 2021-05-11 | Outpatient (CLI) | payer OTHER ==
--- NOTE | 2021-05-11 12:52 | CARD ---
MR#: [id number] Date of Study: 05/11/2021 Ordering Physician: JERO GONZALEZ, Referring Physician: JERO GONZALEZ, Tech: Ward Delacruz [facility] APPROVED REPORT EXAM: Two-dimensional and M-mode echocardiogram with Doppler and color Doppler. Other Information Quality : GoodHR: 71bpm Rhythm : NSR INDICATION Cardiomyopathy 2D DIMENSIONS Left Atrium(2D)3.2 (1.6-4.0cm)IVSd0.9 (0.7-1.1cm) Aortic Root(2D)2.8 (2.0-3.7cm)LVDd4.5 (3.9-5.9cm) LVOT Diameter1.9 (1.8-2.4cm)PWd0.9 (0.7-1.1cm) LVDs3.1 (2.5-4.0cm)FS (%) 30.7 % SV54.6 ml Aortic Valve AoV Peak Joe.91.3cm/sAoV VTI18.5cm AO Peak GR.3.3mmHgLVOT Peak Joe.81.9cm/s AO Mean GR.2mmHgAVA (VMAX)2.51cm2 Mitral Valve MV E Zxmfvxjp57.3cm/sMV E Peak Gr.3mmHg MV DECEL [id number] A Qltzsbxe64.7cm/s MV E Mean Gr.1mmHgE/A Ratio1.3 Pulmonary Valve PV Peak Uezfosyk97.7cm/s Tricuspid Valve TR P. Vshchbph849yo/sTR Peak Gr.17mmHg Pulmonary Vein S1 Itanwola90.4cm/sD2 Bylbzjuh27.8cm/s LEFT VENTRICLE The left ventricle is normal size. There is normal left ventricular wall thickness. The left ventricu lar systolic function is mildly decreased. Left ventricular ejection fraction is 40 to 45%. There is mild global hypokinesis of the left ventricle. The left ventricular diastolic function and filling i s normal for age. No left ventricle thrombus noted on this study. There is no ventricular septal defe ct visualized. There is no left ventricular aneurysm. There is no mass noted in the left ventricle. RIGHT VENTRICLE The right ventricle is normal size. There is normal right ventricular wall thickness. The right ventr icular systolic function is normal. ATRIA The left atrium size is normal. The right atrium size is normal. The interatrial septum is intact wit h no evidence for an atrial septal defect or patent foramen ovale as noted on 2-D or Doppler imaging. AORTIC VALVE The aortic valve is normal in structure and function. Doppler and Color Flow revealed no significant aortic regurgitation. There is no significant aortic valvular stenosis. There is no aortic valvular v egetation. MITRAL VALVE The mitral valve is mildly thickened. There is no evidence of mitral valve prolapse. There is no mitr al valve stenosis. Doppler and Color-flow revealed mild mitral regurgitation. TRICUSPID VALVE The tricuspid valve is normal in structure and function. Doppler and Color Flow revealed mild tricusp id regurgitation. There is no tricuspid valve prolapse or vegetation. There is no tricuspid valve michael nosis. PULMONIC VALVE The pulmonary valve is normal in structure and function. Trivial to mild pulmonic regurgitation There is no pulmonic valvular stenosis. GREAT VESSELS The aortic root is normal in size. The ascending aorta is normal in size. The pulmonary artery is nor mal. The IVC is normal in size and collapses >50% with inspiration. PERICARDIAL EFFUSION There is no pleural effusion. There is no evidence of significant pericardial effusion. Critical Notification Critical Value: No <Conclusion> The left ventricle is normal size. The left ventricular systolic function is mildly decreased. Left ventricular ejection fraction is 40 to 45%. There is mild global hypokinesis of the left ventricle. Doppler and Color Flow revealed no significant aortic regurgitation. There is no significant aortic valvular stenosis. Doppler and Color-flow revealed mild mitral regurgitation. Doppler and Color Flow revealed mild tricuspid regurgitation. Signed by : Jero Gonzalez MD Electronically Approved : 05/11/2021 12:52:20
== END ==
LOC: ECHO 07:50
PROVIDERS: ATTEND Internal Medicine Cardiovascular Disease
DX: I08.8 Other rheumatic multiple valve diseases (principal); I42.9 Cardiomyopathy, unspecified
CPT/HCPCS: 93306

== ENCOUNTER → 2021-07-07 | Outpatient (CLI) | payer OTHER ==
[~2021-07-07] MED LIST changes: +CYCL10TA19 PO; -CYCL10TA2 PO; -DULO60CA6 PO; +DULO60CA7 PO
--- NOTE | 2021-07-08 07:38 | RAD ---
INDICATION: Reason: THYROID NODULE / Spl. Instructions: / History: COMPARISON: None TECHNIQUE: Grayscale and color ultrasound images obtained of the thyroid. FINDINGS: Right Lobe: 52 x 16 x 15 mm. Left Lobe: 51 x 14 x 14 mm. Hypoechoic nodule in the right lobe of the thyroid measuring 8 x 4 mm. Echogenic foci within. Hypoechoic nodule in the left lobe of the thyroid measuring 7 x 3 mm with some echogenic foci within. IMPRESSION: * Bilateral subcentimeter hypoechoic thyroid nodules. There are some echogenic foci within which co uld be from associated calcification or colloid component. Would consider obtaining a follow-up in a year to ensure no growth. Electronically signed by: Stuart Wilcox MD (07/08/2021 7:35 AM) [id number]
== END ==
LOC: US 13:18
PROVIDERS: ATTEND Nurse Practitioner Family
DX: E04.2 Nontoxic multinodular goiter (principal)
CPT/HCPCS: 76536

== ENCOUNTER → 2022-01-16 | Outpatient (CLI) | payer OTHER ==
--- NOTE | 2022-01-16 16:12 | CARD ---
MR#: [id number] Date of Study: 01/16/2022 Ordering Physician: JERO ALMANZAR, Referring Physician: JERO ALMANZAR, Tech: ADRIANA ALEJANDRA RS APPROVED REPORT EXAM: Two-dimensional and M-mode echocardiogram with Doppler and color Doppler. Other Information Quality : GoodHR: 74bpm Rhythm : NSR INDICATION Cardiomyopathy 2D DIMENSIONS RVDd2.1 (2.9-3.5cm)Left Atrium(2D)2.9 (1.6-4.0cm) IVSd0.7 (0.7-1.1cm)Aortic Root(2D)2.7 (2.0-3.7cm) LVDd4.2 (3.9-5.9cm)LVOT Diameter2.1 (1.8-2.4cm) PWd0.7 (0.7-1.1cm)LVDs2.7 (2.5-4.0cm) FS (%) 36.9 %SV53.5 ml LVEF(%)67.2 (>50%) Aortic Valve AoV Peak Joe.102.0cm/[place] Peak GR.5.2mmHg LVOT Peak Joe.79.7cm/sAVA (VMAX)2.76cm2 Pulmonary Valve PV Peak Wzwgmhah31.2cm/s Tricuspid Valve TR P. Wpggwczd158do/sRAP [id number] TR Peak Gr.72usEkITWA83pyKm Pulmonary Vein S1 Zkhgrokl30.6cm/sD2 Khnkszca85.6cm/s PVa dqwnbyzh80zwsb LEFT VENTRICLE The left ventricle is normal size. There is normal left ventricular wall thickness. The left ventricu lar systolic function is low normal. The ejection fraction is estimated at 50%. The left ventricular diastolic function is normal. No left ventricle thrombus noted on this study. There is no ventricular septal defect visualized. There is no left ventricular aneurysm. There is no mass noted in the left ventricle. RIGHT VENTRICLE The right ventricle is normal size. There is normal right ventricular wall thickness. The right ventr icular systolic function is normal. ATRIA The left atrium is mildly dilated. The right atrium size is normal. The interatrial septum is intact with no evidence for an atrial septal defect or patent foramen ovale as noted on 2-D or Doppler imagi ng. AORTIC VALVE The aortic valve is normal in structure and function. No aortic regurgitation is present. There is no aortic valvular stenosis. There is no aortic valvular vegetation. MITRAL VALVE The mitral valve is normal in structure and function. There is no evidence of mitral valve prolapse. There is no mitral valve stenosis. Doppler and Color-flow revealed mild mitral regurgitation. TRICUSPID VALVE The tricuspid valve is normal in structure and function. Doppler and Color Flow revealed mild tricusp id regurgitation. There is no tricuspid valve prolapse or vegetation. There is no tricuspid valve michael nosis. PULMONIC VALVE The pulmonary valve is normal in structure and function. There is no pulmonic valvular regurgitation. There is no pulmonic valvular stenosis. GREAT VESSELS The aortic root is normal in size. The ascending aorta is normal in size. The pulmonary artery is nor mal. The IVC is normal in size and collapses >50% with inspiration. PERICARDIAL EFFUSION There is no pleural effusion. There is no evidence of significant pericardial effusion. Critical Notification Critical Value: No <Conclusion> The left ventricular systolic function is low normal. The ejection fraction is estimated at 50%. Mild mitral regurgitation. Doppler and Color Flow revealed mild tricuspid regurgitation. There is no evidence of significant pericardial effusion. Signed by : Godwin Ramsey, Electronically Approved : 01/16/2022 16:12:02
== END ==
LOC: ECHO 12:41
PROVIDERS: ATTEND Internal Medicine Cardiovascular Disease
DX: I08.1 Rheumatic disorders of both mitral and tricuspid valves (principal); I42.9 Cardiomyopathy, unspecified
CPT/HCPCS: 93306; C8929